=== PATIENT | male | born 1960 | race Caucasian/White ===

== ENCOUNTER 2017-05-13 15:13 | Inpatient (IN) | payer BC ==
[~2017-05-13] VITALS: Ht 180.3 cm; Wt 83.2 kg
--- NOTE | ~2017-05-13 | ER ---
PATIENT'S NAME: RENETTA MEI [facility] AGE: 57 Y [address] ROOM: [place] [address] LOCATION: GICU ADMIT DATE: 05/13/2017 ER/Outpatient Report DISCHARGE DATE: FAMILY PHYSICIAN: Rolando Spence MD ATTENDING PHYSICIAN: ANÍBAL CLAUDIO Time of Arrival: 1533 hours. Time of Exam: 1535 hours. CHIEF COMPLAINT: Unresponsiveness. HISTORY OF PRESENT ILLNESS: The patient was to be a direct admit to the hospital for detox for the care of Dr. Spence. While he was at admission and is getting checked in, he became unresponsive. He was then transported here to the ER by wheelchair and assisted on to the cart. He is unresponsive, but had a pulse and did have some respiratory effort but it was limited. We did assist him with his ventilations initially and then he was able to breathe on his own and we placed him on O2. History is unknown other than he is a chronic alcoholic. He does drink 1.75 L every [address] Spence. Patient told Dr. Spence that he last drank this morning and was seen at Bebe's office requesting assistance with his drinking. According to the notes from Dr. Spence's office, he has been through rehab several times. ALLERGIES: HE HAS NO KNOWN ALLERGIES. CURRENT MEDICATIONS: On the notes from Dr. Spence's office. PAST MEDICAL HISTORY: Alcohol dependency, anxiety, depression, diverticulosis, hyperlipidemia, and obstructive sleep apnea. Past medical history is per the notes from [facility]. PAST SURGERIES: Elbow surgery and foot surgery and colonoscopy. REVIEW OF SYSTEMS: Unable to be obtained at this time, as the patient is nonverbal. PHYSICAL EXAMINATION: VITAL SIGNS: He weighed 83.2 kg. Blood pressure is 138/92, pulse of 100, respiratory rate 20 to 24, temperature 98.2 tympanic, O2 saturations are 92% PATIENT'S NAME: RENETTA MEI [facility] AGE: 57 Y [address] ROOM: [place] [address] LOCATION: GICU ADMIT DATE: 05/13/2017 ER/Outpatient Report DISCHARGE DATE: FAMILY PHYSICIAN: Rolando Spence MD ATTENDING PHYSICIAN: ANÍBAL CLAUDIO on bag-assisted ventilation. GENERAL: The patient is unresponsive, does not verbalize at all. Pupils are equal and reactive to light. His [place] Coma Scale is 3. He will open his eyes, but not to any kind of command and not to pain, just spontaneously opens them every now and then. He is nonverbal and he does not move any of his extremities. LUNGS: Lung sounds were clear throughout. HEART: Tachycardic, regular. ABDOMEN: Soft, nondistended. Bowel sounds are present. EXTREMITIES: Flaccid. No peripheral edema noted. Positive pulses. SKIN: Warm and slightly diaphoretic. No open sores are seen. EMERGENCY ROOM COURSE: He was placed on nasal cannula at 4 L. Respiratory rate was around 18, end- tidal CO2 was 36. He was monitored. Lab was drawn. IV's were started. Dr. Joyce was consulted and is aware of the patient. Respiratory effort became more sonorous at around 1555 hours. His oral gag reflex was decreased. His end-tidal CO2 levels were dropping. The patient was assisted in bagging the respiratory effort. The patient was then intubated with 7.5 size tube at [address] Claudio did come down and was with the patient also. X-ray was completed. ET tube was pulled back slightly. The patient was taken to CT scan for CT of the head and chest PE protocol was completed. EKG showed sinus tachycardia. CBC showed a white count of 6.1, hemoglobin was 16.2 with hematocrit of 44.5. Chem Panel: Sodium is 140, potassium is 3.9, chloride is 104, his glucose is 111, BUN is 14 with a creatinine of 1. AST is 79, ALT is 82, magnesium is 2.6. Cardiac biomarkers were negative. His alcohol came back at 0.562. CT of the head was negative. CT PE protocol was negative for PE, did show some right lower lobe infiltrate. The patient was continued to be monitored. A banana bag was ordered and started. The patient was intolerant of the endotracheal tube and was given a total of 7 mg here in the ER and was given etomidate and rocuronium prior to intubation. Dr. Claudio was well aware of plan of care with the patient, and Dr. Spence was contacted by Dr. Joyce. IMPRESSION: Encephalopathy related to chronic alcoholism. PLAN: The patient will go to ICU for further care by the hospitalist. JT OCASIO APRN FOR ELIANA JOYCE MD PATIENT'S NAME: RENETTA MEI [facility] AGE: 57 Y [address] ROOM: [place] [address] LOCATION: [facility] ADMIT DATE: 05/13/2017 ER/Outpatient Report DISCHARGE DATE: FAMILY PHYSICIAN: Rolando Spence MD ATTENDING PHYSICIAN: ANÍBAL CLAUDIO/bhavya /[id number] d: 05/14/170 t: 05/20/17 07, OUTPATIENT REPORT
--- NOTE | ~2017-05-13 | DS ---
PATIENT'S NAME: RENETTA MEI [facility] AGE: 57 Y [address] ROOM: [id number] [place], [place] [address] LOCATION: GPCU ADMIT DATE: 05/13/2017 Discharge Summary DISCHARGE DATE: 05/17/2017 FAMILY PHYSICIAN: Rolando Spence MD ATTENDING PHYSICIAN: Rolando Spence FINAL DIAGNOSES: 1. Chronic alcoholism, not currently in remission. 2. Acute alcohol intoxication with blood alcohol level of 0.569. 3. Acute hypoxic respiratory failure with need for mechanical intubation to protect airway. 4. Nicotine dependence. 5. Obstructive sleep apnea. REASON FOR ADMIT: This is a 57-year-old male who presented to my office on the day of admission wanting to detox. He states that he was unable to go to treatment at [facility] anymore because they would not allow him back and they did call and confirmed that. He states that he has been drinking 1.75 L of Waqas every 2 days. He had a strong smell of alcohol, but certainly was not horribly inebriated when I saw him in the afternoon on 05/13/2017. He had one point where he was 10 years sober in the past. His last treatment was April 21, 2016, in [place]. Please see dictated H and P for full details. HOSPITAL COURSE: In the clinic, we decided that we would detox in the hospital similar to admission, however apparently when he was admitted he became unresponsive. He was taken directly to the ER and felt that he cannot protect his airway, so he was mechanically intubated to protect his airway and placed in the ICU overnight. He was subsequently extubated the next day. He was placed on the CIWA pathway with Ativan. He actually tolerated that really well. A long discussion with care management and myself as far as what is the best option for him. He really did not feel like he could do another inpatient round. He is temporarily going to have a house on [place] upon discharge so. On the morning of 05/17/2017, he only used 1 dose of Ativan the entire day before and that was that night when he was just trying to sleep. He was deemed ready for discharge. MEDICATION LIST: Includes: 1. Folic acid 1 mg one a day. 2. Multivitamin 1 a day. 3. Nicotine 21 mg patch 1 a day. 4. Thiamine 100 mg 1 a day. DISCHARGE INSTRUCTIONS: He will follow up with me on Tuesday as I want relatively short-term follow up to ensure that he is not drinking. He will call or return sooner if he has problems or concerns. He voiced understanding PATIENT'S NAME: RENETTA MEI [facility] AGE: 57 Y [address] ROOM: [place] [address] LOCATION: [facility] ADMIT DATE: 05/13/2017 Discharge Summary DISCHARGE DATE: 05/17/2017 FAMILY PHYSICIAN: Rolando Spence MD ATTENDING PHYSICIAN: Rolando Spence of that plan. ROLANDO SPENCE MD TAB/modl /[id number] d: 05/17/17 0745 t: 06/02/17 1444, DISCHARGE SUMMARY
--- NOTE | ~2017-05-13 | HP ---
PATIENT'S NAME: ERNETTA MEI [facility] AGE: 57 Y [address] ROOM: [place] [address] LOCATION: GICU ADMIT DATE: 05/13/2017 History & Physical DISCHARGE DATE: FAMILY PHYSICIAN: Rolando Spence MD ATTENDING PHYSICIAN: ANÍBAL LAZARO DATE OF SERVICE: CHIEF COMPLAINT: Unresponsiveness. HISTORY OF PRESENT ILLNESS: A 57-year-old gentleman with an extensive past medical history of alcohol abuse, multiple detoxification, also history of tobaccoism was at the primary care physician's office at Dr. Spence's where he stated that he wanted to detoxify inpatient. A basic lab work was obtained at Dr. Spence's office and he was transferred here for a direct admission. While in admission, he became unresponsive and was transferred to the emergency department. His unresponsiveness was he just slumped over the chair unable to arouse. Had pulse and hemodynamic stability. No tonic-clonic movements were noted. No foaming of the mouth noted. No rolling of the eyes back noted. He had stable pulse and blood pressure during the same time. In the emergency department, he was intubated for airway protection. REVIEW OF SYSTEMS: Review of system was attempted to be obtained and we were able to obtain it from primary care physician's office which showed: CONSTITUTIONAL: Denies fatigue and night sweats. EYES: Denies double vision, blurred vision. HEENT: Denies vertigo, recent head injury. Denies shortness of breath and productive cough. Denies nausea and vomiting. Denies dysuria and urinary retention. Denies hair growth change, new skin lesions. Denies joint swelling, limitation of motion. Denies easy bleeding or petechiae. PAST MEDICAL HISTORY: Alcohol abuse, alcohol dependence, no history of alcohol withdrawal seizures, lower back pain. MEDICATIONS: Medications are being reconciled right now. FAMILY HISTORY: Positive for cardiovascular disease in the family, type 2 diabetes in his brother. PATIENT'S NAME: RENETTA MEI [facility] AGE: 57 Y [address] ROOM: [place] [address] LOCATION: GI ADMIT DATE: 05/13/2017 History & Physical DISCHARGE DATE: FAMILY PHYSICIAN: Rolando Spence MD ATTENDING PHYSICIAN: ANÍBAL LAZARO SOCIAL HISTORY: Heavy drinker about 1.75 L of hard liquor every day. Lifelong smoker. PHYSICAL EXAMINATION: VITAL SIGNS: Blood pressure 114/64, saturating 95% on room air with bag mask assistance, respiratory rate of 4 to 5 breaths on his own, heart rate of 90. GENERAL: Unresponsive. Not able to follow any commands. Recently received etomidate and paralytics as well. EYES: Eye exam showed bilateral pupils responsive to light. CARDIOVASCULAR: S1 and S2. No murmurs, gallops, or rubs. LUNGS: Clear to auscultation bilaterally. ABDOMEN: Soft, nontender, nondistended. Bowel sounds present. EXTREMITIES: No clubbing, cyanosis, or edema. PSYCHIATRIC: Cannot be evaluated due to unresponsive at this point. NEURO: Cannot be further evaluated. GCS was 3/15 on my evaluation, but that was confounded by drugs as well which included etomidate and paralytics. SKIN: No skin lesions, dryness, or blemishes noted. LAB WORK: Lab work which was obtained at 1534 today at the primary care physician's office were unremarkable including a BMP and a CBC. Blood alcohol level was conveyed to me by emergency physician and it was 0.0567. EKG done showed normal sinus rhythm, no acute ST-T wave changes. Chest x-ray was done, which showed right mainstem intubation which was 3 x 1.5 cm. Second chest x-ray did not show any acute infiltrate or edema. CT scan of the chest with IV contrast and CT scan of the chest is still pending. ASSESSMENT: 1. Acute metabolic encephalopathy. 2. Status intubated secondary to lack of airway protection. 3. Alcohol withdrawal/alcohol intoxication. 4. Nicotine dependence. 5. Respiratory failure. Liver enzymes were found to be elevated with AST 79 and ALT 82. CPK, first set of troponins have been negative. PLAN: We are going to admit this patient to the ICU. He will be mechanically ventilated. Pulmonary consultation will be obtained. CIWA protocol will be started. No more sedative medication will be given at this point to make him neuro examinable again. EEG will be obtained. Status epilepticus will be ruled out. We will await for the CT scan of the head, as well as CT of the lungs with PE protocol. Ventilation protocol will be started. At this point, there is no contact regarding family or any friend to be reached out. Dr. Spence was informed of this situation by ER physician, and he wanted the hospitalist to manage this case. PATIENT'S NAME: RENETTA MEI [facility] AGE: 57 Y [address] ROOM: [place] [address] LOCATION: [facility] ADMIT DATE: 05/13/2017 History & Physical DISCHARGE DATE: FAMILY PHYSICIAN: Rolando Spence MD ATTENDING PHYSICIAN: ANÍBAL LAZARO ANÍBAL LAZARO MD ALYCIA/modl /[id number] D: T: 841 HISTORY & PHYSICAL
--- NOTE | ~2017-05-13 | ECHO ---
Transthoracic Echocardiography Report (TTE) Demographics Patient Name RENETTA MEI Date of Study 05/14/2017 Patient Number [id number] Visit Number [id number] Date of 1960 Room Number G6210 Accession Number [id number] Gender Male Age 57 year(s) Referring Bebe Ty MD State Manager Jeromy Dunn RVT, Physician RDFERMÍN Physician Interpreting Darren Rick Computer Technology Teacher Physician Karson LOAIZA Supervising Ordering Physician González Pruitt MD/ZULEMAP Nurse Stress Cms Expert Conclusions Contractility Score Summary Summary The estimated left ventricular ejection fraction is 45-50%. Mild concentric left ventricular hypertrophy. Diastolic assessment reveals Grade I diastolic dysfunction. No significant valvular abnormalities. Procedure Type of Study TTE procedure:2D Echocardiogram. Procedure Date Date: 05/14/2017 Start: 07:11 AM Study Location: Inpatient Portable Technical Quality: Adequate visualization Indications:Syncope. Appropriate Use Criteria: 8 Patient Status: Routine Rhythm: NSR HR: 69 bpm BP: 91/69 mmHg M-Mode/2D Measurements LV Diastolic Dimension: 4.47 cm LV Systolic Dimension: 3.41 cm LV Septum Diastolic: 1.41 cm LV PW Diastolic: 1.31 cm AO Root Dimension: 2.8 cm Cardiac Output: 4.11 l/min LA Dimension: 3.3 cm EF Estimated: 55 % LVOT: 2.1 cm LVOT VTI: 17.2 cm RV Base: 2.93 cm LV Stroke volume: 59.54 ml RV Length: 8 cm TAPSE: 1.99 cm TDI-S': 11.7 cm/s Doppler Measurements AV Peak Velocity: 1.12 m/s MV Peak E-Wave: 0.5 m/s AV Peak Gradient: 5.02 mmHg MV Peak A-Wave: 0.66 m/s AV Mean Gradient: 3 mmHg MV E/A Ratio: 0.76 LVOT Peak Velocity: 0.82 m/s MV P1/2t: 77 msec PV Peak Velocity: 0.9 m/s E' Septal Velocity: 0.08 m/s PV Peak Gradient: 3.26 mmHg E' Lateral Velocity: 0.09 m/s A' Septal Velocity: 0.08 m/s A' Lateral Velocity: 0.08 m/s Findings Left Ventricle Mild concentric left ventricular hypertrophy. Diastolic assessment reveals Grade I diastolic dysfunction. Right Ventricle Normal right ventricle structure and function. Left Atrium The left atrium is mildly dilated. There is no evidence of patent foramen ovale or atrial septal defect by color Doppler. Right Atrium The right atrium is mildly dilated. IVC measures 1.88 cm with inspiratory collapse. Mitral Valve Normal mitral valve structure and function. Aortic Valve Normal aortic valve structure and function. Tricuspid Valve Normal tricuspid valve structure and function. Pulmonic Valve Normal pulmonic valve structure and function. Pericardial Effusion No evidence of pericardial effusion. Miscellaneous Visualized portions of the aortic root and ascending aorta appear normal in size. Pleural Effusion No evidence of pleural effusion. Signature dtt: Mathew Banks dtd: 05/14/17 0711 Physician Self Edit
--- NOTE | ~2017-05-13 | ER ---
PATIENT'S NAME: RENETTA MEI [facility] AGE: 57 Y [address] ROOM: [place] [id number] LOCATION: GICU ADMIT DATE: 05/13/2017 ER/Outpatient Report DISCHARGE DATE: FAMILY PHYSICIAN: Rolando Spence MD ATTENDING PHYSICIAN: ANÍBAL CLAUDIO Time of Arrival: 1533 hours. Time of Evaluation: 1533 hours. IDENTIFICATION: A 57-year-old male. CHIEF COMPLAINT: Unresponsive. HISTORY OF PRESENT ILLNESS: The patient is a 57-year-old male who was being admitted at admissions for alcohol detox per Dr. Spence. He became unresponsive while at admission, Assistance Alert was called, and he was brought to the emergency room unresponsive with minimal respiratory effort. On arrival, the patient was placed on a cot, an IV was initiated, he was hooked on to a monitor, O2 saturations were 92%. Initially, the patient had minimal respiratory effort on his own. He was bagged with bag valve assist, saturations increased to 95% to 98%. He did have snoring respirations. No history was obtained from the patient. I did contact Dr. Spence, who said he was on escitalopram and BuSpar for anxiety. He does have a history of alcohol abuse and has been through rehab, but he said [facility] would not take him back because he has been there too many times and he desired assistance today. He was awake and alert in the office. He did state that his last drink was this morning. He drinks 1-1/2 L of whiskey every 2 days. No seizure history that he is aware of. He has not been here to the emergency room recently. Last seen in 2003. ALLERGIES: NO KNOWN DRUG ALLERGIES. CURRENT MEDICATIONS: 1. Escitalopram 20 mg daily. 2. BuSpar 30 mg b.i.d. MEDICAL PROBLEMS: Anxiety, alcohol dependence, nicotine dependence, depression, hyperlipidemia, diverticulosis, low back pain, and obstructive sleep apnea. PRIOR SURGERIES: Colonoscopy, right elbow surgery, right foot surgery, and previous stress test PATIENT'S NAME: RENETTA MEI [facility] AGE: 57 Y [address] ROOM: [place] [address] LOCATION: GICU ADMIT DATE: 05/13/2017 ER/Outpatient Report DISCHARGE DATE: FAMILY PHYSICIAN: Rolando Spence MD ATTENDING PHYSICIAN: ANÍBAL CLAUDIO was normal in December 2016. ALLERGIES: HE HAS NO KNOWN ALLERGIES. TOBACCO HISTORY: He does have a history of tobacco use, unable to obtain from him at this point the amount. Alcohol use as noted above per Dr. Spence. FAMILY HISTORY: Obtained from old records, not obtained from the patient. Cardiovascular disease in grandfather, depression in sister, and diabetes in brother. SOCIAL HISTORY: Really unknown any other social history. REVIEW OF SYSTEMS: Unable to obtain from the patient. PHYSICAL EXAMINATION: VITAL SIGNS: Weight 83.2 kg, blood pressure 138/92, pulse 100, temperature 98.2, and saturations 92%. [place] Coma score 3. GENERAL: A 57-year-old male, unresponsive even to painful stimuli on initial evaluation. HEENT: Head normocephalic and atraumatic. Pupils are equal. Oropharynx benign. NECK: Supple. No lymphadenopathy. LUNGS: Clear to auscultation. Breath sounds are equal. HEART: Regular rate and rhythm. ABDOMEN: Soft, nondistended, and nontender. SKIN: [place], warm, and dry. No lesions noted. NEURO: The patient is unresponsive. [place] Coma score 3. No lower extremity edema. EMERGENCY DEPARTMENT COURSE: An IV was initiated. The patient was placed on a monitor and bagged valve mask. Airway box was obtained, but then the patient did respond with a little better respiratory effort, so the patient was not immediately intubated, he was saturating 95% to 98% on O2 per nasal cannula, but he did have snoring respirations. EKG showed sinus tachycardia, 100 beats per minute. CBC is unremarkable. Chemistry panel and liver enzymes were mildly elevated, otherwise unremarkable. Cardiac enzymes are negative. Alcohol level 0.562. Salicylate 3.2. Acetaminophen less than 2. The decision was made with the snoring respirations to protect his airway with intubation. The patient was given etomidate 20 mg IV and rocuronium 10 mg IV, 1 L bolus of normal saline, PATIENT'S NAME: RENETTA MEI [facility] AGE: 57 Y [address] ROOM: [place] [address] LOCATION: [facility] ADMIT DATE: 05/13/2017 ER/Outpatient Report DISCHARGE DATE: FAMILY PHYSICIAN: Rolando Spence MD ATTENDING PHYSICIAN: ANÍBAL CLAUDIO and banana bag to run over 4 hours. He was intubated under my supervision by stone Basurto. The patient tolerated the procedure well with no complications. Postintubation chest x-ray showed that the ET tube was right at the mainstem bronchus, so was pulled back 2 cm. The patient was given Versed for sedation here in the emergency room and remained hemodynamically stable. Head CT and PE protocol studies were negative per Radiology. On the PE protocol study, the patient had right lower lobe consolidation and volume loss, possible aspiration versus atelectasis and fatty infiltration of the liver. Initial chest x-ray showed no acute process. Repeat chest x-ray after intubation showed the ET tube placed right at the level of the right mainstem bronchus. IMPRESSION: 1. Acute alcohol intoxication. 2. Acute respiratory failure secondary to acute alcohol intoxication. 3. Atelectasis versus infiltrate, right lower lung. PLAN: The patient will be admitted to ICU per Dr. Claudio, who evaluated the patient in the emergency room. Supportive cares as noted above and ED course as noted above. The patient arrived at 1533 hours and was taken to the floor at 1820 hours. 45 minutes of critical care was provided in the emergency room. PROCEDURES DONE: Intubation under my guidance by stone Basurto. ELIANA JOYCE MD CAR/modl /[id number] d: 05/14/17 0254 t: 05/15/17 0834, OUTPATIENT REPORT
[2017-05-13 15:42] LABS: BASOPHIL # 0.1 K/uL (0.0-0.2); BASOPHIL % 1.1 %; EOSINOPHIL # 0.1 K/uL (0.0-0.5); HEMATOCRIT 44.5 % (37.0-53.0); HEMOGLOBIN 16.2 g/dL (12.0-17.0); IMMATURE GRANULOCYTE % 0.2 %; LYMPHOCYTE # 2.4 K/uL (0.8-4.0); LYMPHOCYTE % 39.1 %; MCH 36.1 pg (27.0-34.0); MCHC 36.4 gm/dL (32.0-36.5); MCV 99.1 fl (83.0-98.0); MONOCYTE # 1.1 K/uL (0.0-1.0); MONOCYTE % 18.3 %; MPV 9.5 fl (9.4-12.4); NEUTROPHIL # (ANC) 2.5 K/uL (1.4-9.0); NEUTROPHIL % 40.3 %; NRBC % 0 /100WBC (0-0.00); PLATELET COUNT 237 K/uL (150-450); RBC 4.49 M/uL (4.00-6.00); WBC 6.1 K/uL (4.0-11.0)
[2017-05-13 15:59] LABS: ALK PHOS 89 IU/L (33-138); ALT 82 IU/L (12-78); ANION GAP 16.9 (10.0-19.0); AST 79 IU/L (10-40); BLOOD UREA NITROGEN 14 mg/dL (6-24); CALCIUM 8.2 mg/dL (8.5-10.5); CHLORIDE 104 mMol/L (96-110); CO2 23 mMol/L (22-32); CPK 152 IU/L (35-332); MAGNESIUM 2.6 mg/dL (1.8-2.6); POTASSIUM 3.9 mMol/L (3.7-5.1); SODIUM 140 mMol/L (135-145); TOTAL BILIRUBIN 0.3 mg/dL (0.0-1.5); TOTAL PROTEIN 7.7 g/dL (6.0-8.4)
[2017-05-13 16:03] LABS: MAGNESIUM 2.5 mg/dL (1.8-2.6); PHOSPHORUS 2.5 mg/dL (2.5-4.9)
[2017-05-13 16:21] LABS: BICARBONATE 25.4 mmol/L (18.0-23.0); LACTATE 3.9 mEq/L (0.50-1.60); PCO2 46 mmHg (35-45); PO2 232 mmHg (80-90)
[2017-05-13 16:23] LABS: PROTIME 9.4 SECONDS (9.8-11.4); PTT 24 SECONDS (25-32)
[2017-05-13 20:53] LABS: HEMOGLOBIN 14.5 g/dL (12.0-17.0); MCH 35.4 pg (27.0-34.0); MCHC 35.4 gm/dL (32.0-36.5); MPV 9.4 fl (9.4-12.4); RBC 4.1 M/uL (4.00-6.00); RDW-CV 13.2 % (11.9-14.6); WBC 5.1 K/uL (4.0-11.0)
[2017-05-13 21:02] LABS: INR - (THERAPEUTIC) 0.9 (0.92-1.07); PROTIME 9.4 SECONDS (9.8-11.4)
[2017-05-13 21:15] LABS: ANION GAP 17.9 (10.0-19.0); BLOOD UREA NITROGEN 12 mg/dL (6-24); CHLORIDE 110 mMol/L (96-110); CO2 21 mMol/L (22-32); CREATININE 0.8 mg/dL (0.6-1.3); MAGNESIUM 2.2 mg/dL (1.8-2.6); PHOSPHORUS 2.5 mg/dL (2.5-4.9); POTASSIUM 3.9 mMol/L (3.7-5.1); SODIUM 145 mMol/L (135-145)
[2017-05-13 21:16] LABS: CALCIUM 7.2 mg/dL (8.5-10.5)
[2017-05-14 02:17] LABS: BICARBONATE 21.8 mmol/L (18.0-23.0); PCO2 36 mmHg (35-45); PO2 107 mmHg (80-90)
[2017-05-14 05:26] LABS: HEMATOCRIT 36.7 % (37.0-53.0); MCHC 35.4 gm/dL (32.0-36.5); MCV 101.7 fl (83.0-98.0); MPV 9.6 fl (9.4-12.4); RBC 3.61 M/uL (4.00-6.00); RDW-CV 13.1 % (11.9-14.6); WBC 5.4 K/uL (4.0-11.0)
[2017-05-14 05:46] LABS: MAGNESIUM 2.2 mg/dL (1.8-2.6)
[2017-05-14 05:48] LABS: PHOSPHORUS 1.8 mg/dL (2.5-4.9)
[2017-05-14 21:05] LABS: ANION GAP 10.5 (10.0-19.0); BLOOD UREA NITROGEN 8 mg/dL (6-24); CALCIUM 7.5 mg/dL (8.5-10.5); CHLORIDE 107 mMol/L (96-110); CO2 26 mMol/L (22-32); CREATININE 0.8 mg/dL (0.6-1.3); POTASSIUM 3.5 mMol/L (3.7-5.1); SODIUM 140 mMol/L (135-145)
[2017-05-15 05:04] LABS: BASOPHIL % 0.5 %; EOSINOPHIL # 0.1 K/uL (0.0-0.5); EOSINOPHIL % 1.3 %; HEMOGLOBIN 13.1 g/dL (12.0-17.0); IMMATURE GRANULOCYTE % 0.4 %; LYMPHOCYTE # 0.9 K/uL (0.8-4.0); LYMPHOCYTE % 16.8 %; MCH 34.7 pg (27.0-34.0); MCHC 34.5 gm/dL (32.0-36.5); MCV 100.8 fl (83.0-98.0); MONOCYTE # 0.7 K/uL (0.0-1.0); MONOCYTE % 12.8 %; NEUTROPHIL # (ANC) 3.8 K/uL (1.4-9.0); NEUTROPHIL % 68.2 %; NRBC % 0 /100WBC (0-0.00); PLATELET COUNT 170 K/uL (150-450); RBC 3.77 M/uL (4.00-6.00); WBC 5.5 K/uL (4.0-11.0)
[2017-05-15 05:18] LABS: ANION GAP 9.9 (10.0-19.0); BLOOD UREA NITROGEN 5 mg/dL (6-24); CALCIUM 7.5 mg/dL (8.5-10.5); CHLORIDE 107 mMol/L (96-110); CO2 28 mMol/L (22-32); CREATININE 0.8 mg/dL (0.6-1.3); MAGNESIUM 2.1 mg/dL (1.8-2.6); POTASSIUM 3.9 mMol/L (3.7-5.1); SODIUM 141 mMol/L (135-145)
[2017-05-15 05:20] LABS: PHOSPHORUS 1.6 mg/dL (2.5-4.9)
[2017-05-17] MEDS ORDERED: FOLIC ACID1 MG PO (08:40)
[2017-05-17] MEDS ORDERED: NICODERM / HABIT7 MG (08:41)
[2017-05-17] MEDS ORDERED: THERA-VITE W/ B1 TAB PO (08:41)
[2017-05-17] MEDS ORDERED: THIAMINE HCL100 MG PO (08:42)
== END 2017-05-17 09:30 | disposition disaster alternative care site (69) | DRG 70 ==
LOC: GPCU 15:13 → GICU 15:13 → GMSU 15:13 → GICU 18:53 → GPCU 05-14 12:23
PROVIDERS: Family Medicine; ADMIT Internal Medicine
PROC: HZ2ZZZZ Detoxification Services for Substance Abuse Treatment (ICD-10-PCS; principal; 2017-05-13)
DX: G93.41 Metabolic encephalopathy (principal); R09.2 Respiratory arrest; F10.239 Alcohol dependence with withdrawal, unspecified; F10.229 Alcohol dependence with intoxication, unspecified; T51.0X1A Toxic effect of ethanol, accidental (unintentional), initial encounter; Y90.0 Blood alcohol level of less than 20 mg/100 ml; E78.5 Hyperlipidemia, unspecified; F17.200 Nicotine dependence, unspecified, uncomplicated; G47.33 Obstructive sleep apnea (adult) (pediatric)
CPT/HCPCS: C9113; G0480; J1650; J2060; J2250; J2704; J3411; J3475; J7030; J7040; Q9967